=== PATIENT | male | born 1980 | race Caucasian/White ===

== ENCOUNTER 2016-05-01 18:08 | Emergency (ER) | payer BC ==
[2016-05-01 18:15] VITALS: BP 135/77; PULSE 78; TEMP 97.6; BMI 27.8
--- NOTE | 2016-05-01 18:32 | PDOC ---
History of Present Illness - General Chief Complaint: Pain Stated Complaint: RT KNEE INJURY Time Seen by Provider: 05/01/16 18:31 History Source: Patient Exam Limitations: No Limitations - History of Present Illness Initial Comments: 05/01/16 18:44 Chief complaint: Right knee pain History of present illness: Patient is a 36-year-old male with no significant medical problems here today with sudden onset of right knee pain that caused his knee to buckle. Patient reports that pain with bending of near straightening of knee is an 8 out of 10 sharp pain anterior knee. Patient denies any previous injuries to this knee. Patient denies any numbness of right knee or leg. Patient took ibuprofen 800 mg a couple of hours ago. 05/01/16 18:53 05/01/16 18:54 Occurred: reports: this morning Severity: reports: severe (rt. knee ) Pain Location: reports: lower extremity (rt. knee anterior ) Method of Injury: Yes: other (pushing a car felt a pop rt. knee) Modifying Factors: improves with: None Loss of Consciousness: no loss of consciousness Associated Symptoms (Fall): trouble walking (using crutches ) Past History - Past Medical History Allergies/Adverse Reactions: Allergies Allergy/AdvReac Type Severity Reaction Status Date / Time No Known Allergies Allergy Verified 05/01/16 18:11 Other medical history: none - Psycho/Social/Smoking Cessation Hx Anxiety: No Suicidal Ideation: No Smoking History: Never smoked Have you smoked in the past 12 months: No Information on smoking cessation initiated: No Hx Alcohol Use: No Drug/Substance Use Hx: No Substance Use Type: None Review of Systems - Review of Systems Able to Perform ROS?: Yes Constitutional: No: Symptoms Reported HEENTM: No: Symptoms Reported Respiratory: No: Symptoms reported Cardiac (ROS): No: Symptoms Reported ABD/GI: No: Symptoms Reported : No: Symptoms Reported Musculoskeletal: Yes: Joint Pain (rt. anterior knee pain with buckling of knee) , Joint Swelling (rt. lateral anterior knee ) Integumentary: No: Symptoms Reported Neurological: No: Symptoms reported *Physical Exam - Vital Signs Last Vital Signs Temp Pulse Resp BP Pulse Ox 97.6 F 78 18 135/77 100 05/01/16 18:11 05/01/16 18:11 05/01/16 18:11 05/01/16 18:11 05/01/16 18:11 - Physical Exam General Appearance: Yes: Appropriately Dressed Vascular Pulses: Dorsalis-Pedis (R): 4+ Extremity: positive: Normal Capillary Refill, Normal Inspection, Normal Range of Motion, Tender (rt anterior knee ), Swelling (rt. lateral knee ), Other ( negative anterior/posterior drawer right ) Integumentary: positive: Normal Color Neurologic: positive: Alert, Normal Response, Motor Strength 5/5 (rt. ), Respond to painful stimul (rt. leg, knee), Responsive. negative: Sensory Deficit (rt. knee) Deep Tendon Reflexes: Knee (R): 2+ Procedures - Consent Consent obtained: From Patient - Splinting Splint Location: Right: Knee Pre-Proc Neuro Vasc Exam: normal Pre-Made Type: knee immobilizer Progress: 05/01/16 18:53 pt. has his own crutches Medical Decision Making - Medical Decision Making 05/01/16 18:46 Patient is a 36-year-old male with no significant medical problems here today with sudden onset of right knee pain that caused his knee to buckle. Patient reports that pain with bending of near straightening of knee is an 8 out of 10 sharp pain anterior knee. Patient denies any previous injuries to this knee. Patient denies any numbness of right knee or leg. Patient took ibuprofen 800 mg a couple of hours ago. She is ambulating with crutches. Knee pain right PLAN: xray rt. knee rt. knee immoblizer follow up with orthopedist as soon as possible 05/01/16 18:54 *DC/Admit/Observation/Transfer Diagnosis at time of Disposition: Unstable right knee Acute knee pain Qualifiers: Laterality: right Qualified Code(s): M25.561 - Pain in right knee - Discharge Dispostion Disposition: HOME Condition at time of disposition: Stable - Referrals Referrals: Timmy Waddell MD [Staff Physician] - Tomer Davila MD [Staff Physician] - - Patient Instructions Additional Instructions: Elevate your right leg as much as possible and apply ice every hour or 2 for 15 minutes while awake today and tomorrow wear knee immobilizer during the day may take off at night and use crutches for ambulation no weight bearing Follow up with orthopedist within the next couple of days Take ibuprofen as needed as directed by loan servicing specialist for pain Return to emergency room if symptoms worsen or new symptoms develop Patient voiced understanding of discharge instructions and all questions were answered
== END 2016-05-01 20:20 | disposition home or self-care (01) ==
LOC: JERFT 18:08
PROC: 2W3LX1Z Immobilization of Right Lower Extremity using Splint (ICD-10-PCS; principal; 2016-05-01)
DX: M25.361 Other instability, right knee (principal)
CPT/HCPCS: 73562-TC-RT; 99281-25

== ENCOUNTER 2021-01-04 21:47 | Inpatient (IN) | payer BC ==
[2021-01-04] MEDS ORDERED: ONDANSETRON 4 MG/2 ML VIAL ONE (21:55)
[2021-01-04 22:00] VITALS: BMI 27.9
[2021-01-04] MEDS ORDERED: NALOXONE HCL 0.4 MG/ML VIAL IVPUSH ONE (22:46)
[2021-01-04] MEDS ORDERED: NALOXONE HCL 0.4 MG/ML VIAL ONE (22:46)
[2021-01-04 23:17] LABS: BASO % 0.2 % (0-2.0); EOS % 0.3 % (0-4.5); HEMATOCRIT 43.6 % (35.4-49); HEMOGLOBIN 14.6 GM/dL (11.7-16.9); LYMPH % 7.7 % (8-40); MCH 29.4 pg (25.7-33.7); MCHC 33.6 g/dl (32.0-35.9); MEAN CELL VOLUME 87.5 fl (80-96); MEAN PLT VOLUME 7.7 fl (7.5-11.1); MONO % 2.9 % (3.8-10.2); NEUT % 88.9 % (42.8-82.8); PLATELET COUNT 286 10^3/uL (134-434); RBC 4.98 M/mm3 (4.00-5.60); RDW 13.3 % (11.9-15.9); VENOUS BASE EXCESS -6.9 mmol/L (-2-2); VENOUS O2 SATURATION 44.1 % (70-80); VENOUS PCO2 62.4 mmHg (38-52); WHITE BLOOD COUNT 15.6 K/mm3 (4.0-10.0)
[2021-01-04 23:21] LABS: VENOUS PH 7.178 (7.310-7.410)
[2021-01-04 23:36] LABS: CHLORIDE 107 mmol/L (98-107); SODIUM 141 mmol/L (136-145)
[2021-01-04 23:39] LABS: ALBUMIN 3.4 g/dl (3.4-5.0); ANION GAP 10 MMOL/L (8-16); BLOOD UREA NITROGEN 16.3 mg/dL (7-18); CO2 24 mmol/L (21-32); GLUCOSE,RANDOM 138 mg/dL (74-106)
[2021-01-04 23:41] LABS: SGOT/AST 49 U/L (15-37); SGPT/ALT 39 U/L (13-61)
[2021-01-04 23:42] LABS: CREATININE 0.9 mg/dL (0.55-1.3)
[2021-01-04 23:43] LABS: BILIRUBIN,TOTAL 0.6 mg/dL (0.2-1); TOT PROT 6.9 g/dl (6.4-8.2)
[2021-01-04 23:45] LABS: ALK PHOS 60 U/L (45-117)
[2021-01-05] MEDS ORDERED: PIPERACILLIN/TAZOB 4.5 GM 4.5 GM in DEXTROSE 5%-WATER 100 ML IVPB ONE (00:07)
[2021-01-05] MEDS ORDERED: PIPERACILLIN/TAZOB 4.5 GM 4.5 GM/100 ML BAG IVPB ONE (00:24)
[2021-01-05] MEDS ORDERED: LORazepam 1 MG TABLET PO PRN (02:25)
[2021-01-05 02:43] LABS: VENOUS BASE EXCESS -3.8 mmol/L (-2-2); VENOUS O2 SATURATION 66.5 % (70-80); VENOUS PCO2 50.1 mmHg (38-52); VENOUS PH 7.287 (7.310-7.410)
[2021-01-05] MEDS ORDERED: FOLIC ACID INJECTION - 1 MG, THIAMINE HCL 100 MG, MULTIVIT INJECTION ADULT 10 ML in SOD... IVPB ONE (03:15)
[2021-01-05 04:10] LABS: METHADONE, UR NEGATIVE (NEGATIVE); OPIATES, URI NEGATIVE (NEGATIVE); PHENCYCLIDINE,URINE NEGATIVE (NEGATIVE); URINE BARBITURATES NEGATIVE (NEGATIVE); URINE BENZODIAZEPINES NEGATIVE (NEGATIVE)
[2021-01-05 04:14] LABS: COCAINE, UR NEGATIVE (NEGATIVE); URINE AMPHETAMINES POSITIVE (NEGATIVE)
[2021-01-05 04:16] LABS: EPI CELLS 3 /uL (0-25.1); HYALINE CASTS 1 /uL (0-3.1); PH,URINE 5.5 (5.0-8.0); URINE APPEARANCE CLEAR; URINE BACTERIA 1 /uL (0-1359); URINE BILIRUBIN NEGATIVE (NEGATIVE); URINE COLOR YELLOW; URINE GLUCOSE (UA) NEGATIVE (NEGATIVE); URINE KETONE NEGATIVE (NEGATIVE); URINE LEUK ESTERASE NEGATIVE (NEGATIVE); URINE NITRITE NEGATIVE (NEGATIVE); URINE PROTEIN 2+ (NEGATIVE); URINE RBC 9 /uL (0-23.9); URINE WBC 9 /uL (0-25.8)
[2021-01-05] MEDS ORDERED: LORazepam 1 MG TABLET ONE (05:42)
[2021-01-05] MEDS: LORazepam 1 MG TABLET PO SCH ×3 (05:48→17:42)
[2021-01-05 06:07] VITALS: TEMP 98
[2021-01-05 06:32] LABS: BASO % 0.1 % (0-2.0); HEMATOCRIT 43.2 % (35.4-49); HEMOGLOBIN 14.6 GM/dL (11.7-16.9); MCH 29.8 pg (25.7-33.7); MCHC 33.9 g/dl (32.0-35.9); MEAN CELL VOLUME 88.1 fl (80-96); MEAN PLT VOLUME 8.4 fl (7.5-11.1); MONO % 7.4 % (3.8-10.2); NEUT % 90.5 % (42.8-82.8); PLATELET COUNT 248 10^3/uL (134-434); RBC 4.91 M/mm3 (4.00-5.60); WHITE BLOOD COUNT 22.4 K/mm3 (4.0-10.0)
[2021-01-05 06:52] LABS: ALBUMIN 3.2 g/dl (3.4-5.0); CALCIUM 8.3 mg/dL (8.5-10.1)
[2021-01-05 06:54] LABS: BLOOD UREA NITROGEN 14.2 mg/dL (7-18); MAGNESIUM 1.6 mg/dL (1.8-2.4)
[2021-01-05 06:57] LABS: BILIRUBIN,TOTAL 1.8 mg/dL (0.2-1); PHOSPHOROUS 3.9 mg/dL (2.5-4.9); TOT PROT 6.8 g/dl (6.4-8.2)
[2021-01-05] MEDS ORDERED: ENOXAPARIN NA (PORCINE) 40 MG/0.4 ML DISP.SYRIN SQ SCH (10:00)
[2021-01-05] MEDS ORDERED: AMPICILLIN NA/SULBACTAM NA 3 GM in SODIUM CHLORIDE 100 ML IVPB SCH ×2 (13:10→15:00)
[2021-01-05 14:41] VITALS: BP 129/84; PULSE 83
[2021-01-06] MEDS ORDERED: LORazepam 1 MG TABLET PO SCH (05:00)
[2021-01-06] MEDS ORDERED: ENOXAPARIN NA (PORCINE) 40 MG/0.4 ML DISP.SYRIN SQ SCH (10:00)
[2021-01-07] MEDS ORDERED: LORazepam 0.5 MG TABLET PO PRN
[2021-01-07] MEDS ORDERED: LORazepam 0.5 MG TABLET PO SCH (05:00)
[2021-01-08] MEDS ORDERED: LORazepam 0.5 MG TABLET PO ONE (05:00)
== END 2021-01-05 17:30 | disposition left against medical advice (07) | DRG 917 ==
LOC: JER 21:47 → JERBED 01-05 01:22 → OBSVTOIN 01-05 02:21
PROVIDERS: ADMIT Internal Medicine
DX: T40.2X1A Poisoning by other opioids, accidental (unintentional), initial encounter (principal); J96.01 Acute respiratory failure with hypoxia; J96.02 Acute respiratory failure with hypercapnia; Y92.89 Other specified places as the place of occurrence of the external cause; F12.20 Cannabis dependence, uncomplicated
CPT/HCPCS: 36415; 71045-TC-FY; 80053; 80061; 80307; 81003; 82550; 82553; 82803; 83036; 83735; 84100; 84443; 84484; 85025; 93005; 93010; 99291; C9803; G0378; U0003; U0005